=== PATIENT | male | born 1940 | race Caucasian/White ===

== ENCOUNTER → 2017-06-14 | Outpatient (CLI) | payer MEDICARE, BC | LOC: COL.RAD 09:33 | DX: I86.1 Scrotal varices (principal) ==

== ENCOUNTER → 2017-11-17 | Outpatient (CLI) | payer MEDICARE, BC | LOC: COL.RAD 10:09 | DX: M51.27 Other intervertebral disc displacement, lumbosacral region (principal); M46.87 Other specified inflammatory spondylopathies, lumbosacral region; M48.07 Spinal stenosis, lumbosacral region; M41.86 Other forms of scoliosis, lumbar region ==

== ENCOUNTER → 2018-04-08 | Outpatient (CLI) | payer MEDICARE, BC | LOC: COL.RAD 12:45 | DX: M25.552 Pain in left hip (principal); M54.5 Low back pain | CPT/HCPCS: J3301; Q9967 ==

== ENCOUNTER → 2021-09-11 | Outpatient (CLI) | payer MEDICARE, BC | LOC: COL.RAD 12:17 | DX: M25.552 Pain in left hip (principal) | CPT/HCPCS: J3301; Q9967 ==

== ENCOUNTER → 2022-09-10 | Outpatient (CLI) | payer MEDICARE, BC | LOC: COL.RAD 07:07 | DX: R79.89 Other specified abnormal findings of blood chemistry (principal) | CPT/HCPCS: Q9967 ==